=== PATIENT | male | born 1985 | race Hispanic/Latino ===

== ENCOUNTER 2016-11-14 19:28 | Emergency (ER) | payer OTHER ==
[2016-11-14 23:20] VITALS: BP 115/61
--- NOTE | 2016-11-15 00:26 | ED GI/GU/ABDOMINAL COMPLAINT ---
History of Present Illness General Chief Complaint: Nausea, Vomiting, Diarrhea Stated Complaint: N/V/D Source: patient, family Exam Limitations: no limitations Vital Signs & Intake/Output Vital Signs & Intake/Output DD Allergies Coded Allergies: NO KNOWN ALLERGIES (09/07/12) Triage Nurses Notes Reviewed? yes Duration: constant Timing: single episode today Quality/Severity: cramping, severe Location: generalized abdomen Activities at Onset: eating HPI: Patient is a 31-year-old male who presents emergency room with acute onset of nausea vomiting diarrhea and abdominal pain. Patient states that a few hours prior to onset of symptoms he ate 24-hour old food which included Rice. Patient has had multiple episodes of nonbloody nonbilious emesis and loose watery diarrhea production with no blood no melena noted. Denies any recent antibiotic use. Denies any alcohol use. (SAMANTHA MONTES) Reconcile Medications No Known Home Medications (MEGAN CUEVA,COLTON Ventura) Past History Travel History Traveled to [place] past 21 day No Medical History Any Pertinent Medical History? none Surgical History Surgical History: non-contributory Psychosocial History What is your primary language Barb[place] Family History Hx Contributory? No (SAMANTHA MONTES) Review of Systems Review of Systems Constitutional: Reports: no symptoms. EENTM: Reports: no symptoms. Respiratory: Reports: no symptoms. Cardiovascular: Reports: no symptoms. GI: Reports: see HPI, abdominal pain, nausea, vomiting. Genitourinary: Reports: no symptoms. Musculoskeletal: Reports: no symptoms. Skin: Reports: no symptoms. Neurological/Psychological: Reports: no symptoms. Hematologic/Endocrine: Reports: no symptoms. Immunologic/Allergic: Reports: no symptoms. All Other Systems: Reviewed and Negative (SAMANTHA MONTES) Physical Exam Physical Exam General Appearance: no apparent distress, alert Head: atraumatic Eyes: Bilateral: normal appearance. Ears, Nose, Throat, Mouth: hearing grossly normal Neck: normal inspection Respiratory: normal breath sounds Cardiovascular: regular rate/rhythm Gastrointestinal: normal bowel sounds, soft, GENERALIZED ABDOMINAL PAIN Back: normal inspection Extremities: normal range of motion Neurologic/Psych: no motor/sensory deficits Core Measures ACS in differential dx? No Severe Sepsis Present: No Septic Shock Present: No (SAMANTHA MONTES) Progress Differential Diagnosis: AAA, AMI, appendicitis, biliary colic, bowel obstruction , colon cancer, cholecystitis, diverticulitis, epididymitis, esophageal varices, gastritis, hepatitis, hernia, hemorrhoids, ischemic bowel, inflamm bowel dis, Naz-Mylene tear, orchitis, pancreatitis, prostatitis, peptic ulcer, PUD/GERD, perforated viscous, pyelonephritis, SBO, STD, testicular torsion, ureterolithiasis, urinary retention, urethritis, UTI/pyelo Plan of Care: Patient had significant resolution of his nausea vomiting diarrhea and abdominal pain with medications of morphine Lomotil Initially Zofran and Reglan were administered with no resolution of nausea however phrenic and did resolute the nausea. CT scan was unremarkable. Patient has concerns of mildly elevated white blood cell count and lactic acid was mostly attributed to patient's gastroenteritis concerns. Patient could tolerate by mouth upon discharge. Upon discharge patient looks well no apparent distress nontoxic-appearing afebrile and patient was strongly advised to follow up with metal hanging helper if no better as instructed and the plan Diagnostic Imaging: Viewed by Me: CT Scan. Radiology Impression: no acute abnormality Initial ED EKG: none Comments: CT scan that was dictated by Dr. Yomi WEBER, noted that the impression was no acute findings of the abdomen or pelvis no acute inflammatory changes. (SAMANTHA MONTES) Departure Departure Disposition: HOME OR SELF CARE Condition: Stable Clinical Impression Primary Impression: Gastroenteritis Secondary Impressions: Abdominal pain Referrals: PATIENT HAS NO PRIMARY CARE DR Departure Forms: Customer Survey General Discharge Information (SAMANTHA MONTES) Departure Prescriptions: Current Visit Scripts No Known Home Medications PA/PAPER CONE GRADER Co-Sign Statement Statement: ED Attending supervision documentation- [] I saw and evaluated the patient. I have also reviewed all the pertinent lab results and diagnostic results. I agree with the findings and the plan of care as documented in the PA's/PAPER CONE GRADER's documentation. [x] I have reviewed the ED Record and agree with the PA's/PAPER CONE GRADER's documentation. [] Additions or exceptions (if any) to the PAs/PAPER CONE GRADER's note and plan are summarized below: [] (MEGAN CUEVA,COLTON Ventura)
[2016-11-15 02:08] LABS: PT 12.6 SEC (9.4-12.5)
[2016-11-15 04:10] LABS: ABSOLUTE BASOPHIL COUNT 0.1 /CUMM (0.0-0.2); ABSOLUTE EOSINOPHIL COUNT 0.1 /CUMM (0.0-0.7); ABSOLUTE GRANULOCYTE CT 17.5 /CUMM (1.4-6.5); ABSOLUTE LYMPH COUNT 0.7 /CUMM (1.2-3.4); ABSOLUTE MONOCYTE COUNT 0.9 /CUMM (0.10-0.60); BASOPHIL % 0.4 % (0.0-2.0); EOSINOPHIL % 0.6 % (0-5); GRANULOCYTE % 90.9 % (42.2-75.2); HEMATOCRIT 41.9 % (42-52); MEAN CORPUSCULAR HGB 30.5 PG (27.0-31.0); MEAN CORPUSCULAR VOLUME 89.6 FL (80.0-94.0); MEAN PLATELET VOLUME 9.4 FL (7.4-10.4); PLATELET COUNT 282 /CUMM (130-400); RBC DISTRIBUTION WIDTH 12.8 % (11.5-14.5); RED BLOOD CELL CT 4.68 /CUMM (4.70-6.10); WHITE BLOOD CELL COUNT 19.2 /CUMM (4.8-10.8)
--- NOTE | 2016-11-15 07:37 | CT SCAN REPORT ---
EXAMINATION: CT ABDOMEN AND PELVIS WITH CONTRAST CLINICAL INFORMATION: Abdominal pain. COMPARISON: None TECHNIQUE: Multidetector volumetric imaging was performed of the abdomen and pelvis before and after the IV administration of 93 mL of Optiray 320 intravenous contrast. Sagittal and coronal reformatted images were obtained on the technologist's workstation. DLP: 281 mGy-cm FINDINGS: LUNG BASES: There is dependent by basilar atelectasis with probable small consolidation right lower lobe. Heart size is normal. LIVER, GALLBLADDER, AND BILIARY TREE: The liver is normal in size, shape, and attenuation. No focal hepatic lesion or biliary ductal dilatation is present. The gallbladder is unremarkable with no evidence of radiopaque gallstones, gallbladder wall thickening, or obvious pericholecystic inflammatory changes. PANCREAS: Unremarkable. SPLEEN: Unremarkable. ADRENAL GLANDS: Unremarkable. KIDNEYS AND URETERS: The kidneys are normal in size, shape, and attenuation. No hydronephrosis, hydroureter, or calculi seen. No perinephric stranding. BLADDER: Unremarkable. GASTROINTESTINAL TRACT: There is nonspecific mild mural thickening involving the ascending colon without pericolic stranding or distention. There is fluid-filled descending and sigmoid colon. The small bowel loops are normal caliber. Appendix is normal caliber. No free fluid or free air seen. ABDOMINAL WALL: A small amount of local hernia with intraperitoneal fat is noted. LYMPH NODES: Normal. VASCULAR: Unremarkable. PELVIC VISCERA: Unremarkable. OSSEOUS STRUCTURES: No lytic or sclerotic process seen. IMPRESSION: Nonspecific mild mural thickening in the ascending colon and nondistended fluid-filled descending and sigmoid colon. This could be secondary to infectious etiology. However there is no suggestion of diverticulitis. No pericolic fat stranding seen. Correlate with clinical exam. Normal appendix and small bowel loops. No abnormal lymph nodes seen. Bibasilar atelectasis and minimal consolidation right base.
== END 2016-11-15 02:01 ==
LOC: ERH
PROVIDERS: Physician Assistant
DX: K52.9 Noninfective gastroenteritis and colitis, unspecified (principal)
CPT/HCPCS: 74177; 96360; 96361; J2405; J2550; J2765